=== PATIENT | male | born 1965 | race Caucasian/White ===

== ENCOUNTER 2017-04-22 13:40 | Emergency (ER) | payer OTHER ==
[2017-04-22 13:54] VITALS: BP 124/76; PULSE 61; TEMP 99.2; BMI 31.9
[2017-04-22] MEDS ORDERED: SODIUM CHLORIDE 1,000 ML IV STA (14:01)
[2017-04-22 14:10] LABS: RDW 12.4 % (11.9-15.9); WHITE BLOOD COUNT 16.5 K/mm3 (4.0-10.8)
--- NOTE | 2017-04-22 14:14 | PDOC ---
History of Present Illness - General Chief Complaint: Diarrhea Stated Complaint: LOOSE STOOLS HEADACHE AND WRETCHING Time Seen by Provider: 04/22/17 13:51 - History of Present Illness Initial Comments: 04/22/17 14:04 Mr. Coelho is a 51 yo male with a significant past medical history of borderline DMII who presents to the emergency department with a 4 day history of diarrhea with vomiting this AM as well. He says that the diarrhea began monday night 4 days after he returned from [place] and that he has eaten only toast and crackers since his diarrhea began. He reports the vomit this AM was scant and consisted mostly of the nexium and antacid he tried for relief one hour earlier. Finally, Mr. Coelho says that over the same time period he has experienced some burning from his stomach up towards his neck that he thinks may be heart burn. He is currently reporting a slight headache as well. The patient denies chest pain, shortness of breath, and dizziness. Denies fever , chills, and constipation. Denies dysuria, frequency, urgency and hematuria. Allergies:NKDA Past surgical history:Knee arthroscopy, cholecystectomy, chest muscle wall repair Social history: Social drinker, denies tobacco PMD - Dr. Hazel Past History - Past Medical History Allergies/Adverse Reactions: Allergies Allergy/AdvReac Type Severity Reaction Status Date / Time codeine Allergy Vomiting Verified 04/22/17 14:03 Home Medications: Ambulatory Orders Ciprofloxacin [Cipro -] 500 mg PO Q12H #10 tablet 04/22/17 Ondansetron HCl [Zofran] 4 mg PO ASDIR PRN #20 tablet 04/22/17 Other medical history: DENIES - Surgical History Cholecystectomy: Yes - Psycho/Social/Smoking Cessation Hx Anxiety: No Suicidal Ideation: No Smoking History: Never smoked Information on smoking cessation initiated: No Hx Alcohol Use: No Drug/Substance Use Hx: No Substance Use Type: None Review of Systems - Review of Systems Comments:: 04/22/17 14:04 GENERAL/CONSTITUTIONAL: No fever or chills. No weakness. HEAD, EYES, EARS, NOSE AND THROAT: No change in vision. No ear pain or discharge. No sore throat. CARDIOVASCULAR: No chest pain or shortness of breath RESPIRATORY: No cough, wheezing, or hemoptysis. GASTROINTESTINAL: +4 day history of Nausea, vomiting, diarrhea. No constipation. GENITOURINARY: No dysuria, frequency, or change in urination. MUSCULOSKELETAL: No joint or muscle swelling or pain. No neck or back pain. SKIN: No rash NEUROLOGIC: +Mild headache, no vertigo, loss of consciousness, or change in strength/sensation. ENDOCRINE: No increased thirst. No abnormal weight change HEMATOLOGIC/LYMPHATIC: No anemia, easy bleeding, or history of blood clots. ALLERGIC/IMMUNOLOGIC: No hives or skin allergy. 04/22/17 14:14 *Physical Exam - Vital Signs Last Vital Signs Temp Pulse Resp BP Pulse Ox 99.2 F 61 16 124/76 97 04/22/17 13:42 04/22/17 13:42 04/22/17 13:42 04/22/17 13:42 04/22/17 13:42 - Physical Exam Comments: 04/22/17 14:03 GENERAL: Awake, alert, and fully oriented, in no acute distress HEAD: No signs of trauma, normocephalic, atraumatic EYES: PERRLA, EOMI, sclera anicteric, conjunctiva clear ENT: Auricles normal inspection, hearing grossly normal, nares patent, oropharynx clear without exudates. Moist mucosa NECK: Normal ROM, supple, no lymphadenopathy, JVD, or masses LUNGS: No distress, speaks full sentences, clear to auscultation bilaterally HEART: Regular rate and rhythm, normal S1 and S2, no murmurs, rubs or gallops, peripheral pulses normal and equal bilaterally. ABDOMEN: +Some discomfort noted on palpation, but soft, nontender, normoactive bowel sounds. No guarding, no rebound. No masses EXTREMITIES: Normal inspection, Normal range of motion, no edema. No clubbing or cyanosis. NEUROLOGICAL: Cranial nerves II through XII grossly intact. Normal speech, normal gait, no focal sensorimotor deficits SKIN: Warm, Dry, normal turgor, no rashes or lesions noted. 04/22/17 14:15 Heart Score/ECG Review - ECG Impressions Comment:: 04/22/17 14:33 Sinus rhythm, rate 63, normal access, normal interval. Borderline for LVH. Possible inferior infarct noted in lead III and aVF Q waves, cannot compare with earlier EKG. Overall EKG not concerning for acute pathology. ED Treatment Course - LABORATORY CBC & Chemistry Diagram: 04/22/17 14:04 04/22/17 14:04 Medical Decision Making - Medical Decision Making 04/22/17 15:35 Mr. Coelho presents with symptoms/story consistent with traveler's diarrhea vs. viral illness. Due to elevated WBC's will send Rx for Cipro 500 BID for 5 days and Zofran as needed to pharmacy to shorten course / give relief. Will also instruct to follow-up with PCP regarding elevated AST lab levels. Laboratory Results - last 24 hr 04/22/17 04/22/17 14:04 14:04 WBC 16.5 H RBC 5.22 Hgb 16.8 Hct 49.3 H MCV 94.4 MCH 32.2 MCHC 34.0 RDW 12.4 Plt Count 218 MPV 8.5 Neutrophils % 81.9 Lymphocytes % 7.8 L Monocytes % 8.2 Eosinophils % 0.2 Basophils % 1.9 Sodium 138 Potassium 4.3 Chloride 106 Carbon Dioxide 27 Anion Gap 5 L BUN 12 Creatinine 1.0 Creat Clearance w eGFR > 60 Random Glucose 102 Calcium 9.0 Total Bilirubin 0.9 AST 74 H ALT 35 Alkaline Phosphatase 54 Total Protein 7.1 Albumin 3.7 *DC/Admit/Observation/Transfer Diagnosis at time of Disposition: Diarrhea Qualifiers: Diarrhea type: unspecified type Qualified Code(s): R19.7 - Diarrhea, unspecified - Discharge Dispostion Disposition: HOME Condition at time of disposition: Stable - Referrals Referrals: Flo Hazel MD [Staff Physician] - - Patient Instructions Printed Discharge Instructions: DI for Diarrhea and Traveler's Diarrhea -- Adult - Attestations Physician Attestion: 04/22/17 14:18 I, Dr. Vasquez Sorenson, attest that this document has been prepared under my direction and personally reviewed by me in its entirety. I further attest, that it accurately reflects all work, treatment, procedures and medical decision -making performed by me.
[2017-04-22 14:15] LABS: BASOPHIL 1.9 % (0-2.0); EOSINOPHIL 0.2 % (0-4.5); MCH 32.2 pg (25.7-33.7); MEAN CELL VOLUME 94.4 fl (80-96); MEAN PLT VOLUME 8.5 fl (7.5-11.1); NEUTROPHILS 81.9 % (42.8-82.8); PLATELET COUNT 218 K/MM3 (134-434)
[2017-04-22] MEDS ORDERED: ONDANSETRON 4 MG/2 ML VIAL IVPB ONE (14:20)
[2017-04-22] MEDS ORDERED: ONDANSETRON 4 MG/2 ML VIAL ONE (14:21)
[2017-04-22 14:23] LABS: ALBUMIN 3.7 g/dl (3.5-5.0); ALK PHOS 54 U/L (32-92); ANION GAP 5 (8-16); BILIRUBIN,TOTAL 0.9 mg/dl (0.2-1.0); CO2 27 mmol/L (22-28); GLUCOSE,RANDOM 102 mg/dl (74-106); SGOT/AST 74 U/L (10-42); SGPT/ALT 35 U/L (10-40); TOT PROT 7.1 g/dl (6.4-8.3)
--- NOTE | 2017-04-22 15:32 | PDOC ---
Attending Attestation - Resident Resident Name: Vasquez Sorenson - ED Attending Attestation I have performed the following: I have examined & evaluated the patient, The case was reviewed & discussed with the resident, I agree w/resident's findings & plan - HPI HPI: 04/22/17 15:30 back from [place] on Monday, started diarrhea and upset stomach since Monday. No fever. Frequent watery diarrhea without blood. Today with dry heaves. Comes in because symptoms are not getting better. Examination with normal bowel sounds, soft abdomen without tenderness or guarding. Laboratory workup noted. White blood cell count is elevated to 16.5. Differential diagnosis is viral gastroenteritis versus traveler's diarrhea. Given the persistence of symptoms and the high white blood cell count, patient will be treated with Cipro 500 mg twice a day which has been demonstrated to reduce the severity of symptoms in patients with traveler's diarrhea or bacterial enteritis. Laboratory Results - last 24 hr 04/22/17 04/22/17 14:04 14:04 WBC 16.5 H RBC 5.22 Hgb 16.8 Hct 49.3 H MCV 94.4 MCH 32.2 MCHC 34.0 RDW 12.4 Plt Count 218 MPV 8.5 Neutrophils % 81.9 Lymphocytes % 7.8 L Monocytes % 8.2 Eosinophils % 0.2 Basophils % 1.9 Sodium 138 Potassium 4.3 Chloride 106 Carbon Dioxide 27 Anion Gap 5 L BUN 12 Creatinine 1.0 Creat Clearance w eGFR > 60 Random Glucose 102 Calcium 9.0 Total Bilirubin 0.9 AST 74 H ALT 35 Alkaline Phosphatase 54 Total Protein 7.1 Albumin 3.7 04/22/17 15:31 - Physicial Exam PE: 04/22/17 15:32 benign abd as noted - Medical Decision Making 04/22/17 15:32 see assessment above
--- NOTE | 2017-04-23 19:05 | EKG ---
Test Reason : Blood Pressure : / mmHG Vent. Rate : 063 BPM Atrial Rate : 063 BPM P-R Int : 142 ms QRS Dur : 094 ms QT Int : 362 ms P-R-T Axes : 049 050 017 degrees QTc Int : 370 ms SINUS RHYTHM MINIMAL VOLTAGE CRITERIA FOR LVH, MAY BE NORMAL VARIANT ABNORMAL ECG NO PREVIOUS ECGS AVAILABLE Confirmed by WOOD FONSECA MD ([id number]) on 04/23/2017 7:05:24 PM Referred By: ALICE PADILLA Confirmed By:WOOD FONSECA MD
== END 2017-04-22 15:48 | disposition home or self-care (01) ==
LOC: FER 13:40
PROC: 3E033GC Introduction of Other Therapeutic Substance into Peripheral Vein, Percutaneous Approach (ICD-10-PCS; principal; 2017-04-22)
PROC: 3E0337Z Introduction of Electrolytic and Water Balance Substance into Peripheral Vein, Percutaneous Approach (ICD-10-PCS; 2017-04-22)
DX: R19.7 Diarrhea, unspecified (principal); R73.03 Prediabetes; Z88.5 Allergy status to narcotic agent
CPT/HCPCS: 36415; 80053; 85025; 93005; 99283-25

== ENCOUNTER 2017-05-04 17:20 | Observation (INO) | payer OTHER ==
[2017-05-04 17:24] VITALS: BMI 32.2
[2017-05-04] MEDS ORDERED: ASPIRIN 81 MG CHEWABLE TABLETS PO ONE ×2 (17:35→17:52)
--- NOTE | 2017-05-04 17:40 | PDOC ---
History of Present Illness - General Chief Complaint: Palpitations Stated Complaint: PALPITATIONS Time Seen by Provider: 05/04/17 17:21 History Source: Patient Exam Limitations: No Limitations - History of Present Illness Initial Comments: This is a 51 yo male with h/o recent diarrheal illness who presents with palpitations. He explains that since yesterday afternoon, he has been having left chest discomfort which is not like pain, but which feels like "something is just not right." He notes that his heart beat feels irregular. He also has had sweats this afternoon, but he denies any nausea, vomiting, continued diarrhea, chest pain, shoulder pain, arm pain, jaw pain, neck pain, dizziness, headache, vision changes, numbness, tingling, weakness, cough, sore throat, or runny nose. Three months ago he had an echocardiogram as part of a workup for burning mid-sternal chest pain, and this study was normal. He was supposed to have a follow-up cardiac stress test, but this has not yet been done. He continues to have occasional episodes of burning midsternal chest pain, the last of which was a few days ago. He takes a baby ASA a day, and his last dose was yesterday. He has no history of high blood pressure, high cholesterol, diabetes, known heart disease, or family history of heart disease or sudden . He used to smoke cigars but has not for decades. Past History - Past Medical History Allergies/Adverse Reactions: Allergies Allergy/AdvReac Type Severity Reaction Status Date / Time codeine Allergy Vomiting Verified 05/04/17 17:21 Home Medications: Ambulatory Orders NK [No Known Home Medication] 05/04/17 - Surgical History Cholecystectomy: Yes - Psycho/Social/Smoking Cessation Hx Anxiety: No Suicidal Ideation: No Smoking History: Never smoked Hx Alcohol Use: No Drug/Substance Use Hx: No Substance Use Type: None Cardiac Specific PMH - Complaint Specific PMHX Cardiac Arrhythmia: No *Physical Exam - Vital Signs Last Vital Signs Temp Pulse Resp BP Pulse Ox 98.7 F 74 16 139/91 100 05/04/17 17:20 05/04/17 17:20 05/04/17 17:20 05/04/17 17:20 05/04/17 17:20 Heart Score/ECG Review - History History: Moderately suspicious - Electrocardiogram EKG: Significant ST-depression - Age Age: 45-65 - Risk Factors Risk Factors Heart Score: Yes Smoking History, Yes Hx Obesity Based on the list above the patient has:: 1-2 risk factors #1 Sinus rhythm, rate of 72, with normal axis and intervals, with flipped t-waves in II, III, and aVF and 3-box q-wave in III, also with 2 PVCs. Flipped t-waves are NEW compared with EKG performed on 04/22/17 which showed upright t-waves in II and aVF and only a slightly inverted t-wave in III. ED Treatment Course - LABORATORY CBC & Chemistry Diagram: 05/04/17 17:42 05/04/17 17:42 - ADDITIONAL ORDERS Additional order review: Laboratory Results 05/04/17 05/04/17 05/04/17 17:42 17:42 17:41 INR 1.18 PTT (Actin FS) 29.6 Sodium 137 Potassium 4.1 Chloride 103 Carbon Dioxide 26 Anion Gap 8 BUN 18 D Creatinine 1.2 Creat Clearance w eGFR > 60 Random Glucose 85 Calcium 9.5 Magnesium 1.8 Total Bilirubin 0.6 D AST 25 D ALT 34 Alkaline Phosphatase 58 Creatine Kinase Cancelled 141 Troponin I Cancelled 0.06 Total Protein 7.5 Albumin 3.8 05/04/17 17:42 RBC 5.33 MCV 91.1 MCHC 35.4 RDW 11.9 MPV 7.9 Neutrophils % 60.0 D Lymphocytes % 27.0 D Monocytes % 10.1 Eosinophils % 1.7 D Basophils % 1.2 05/04/17 19:05 - RADIOLOGY Radiology Studies Ordered: Category Date Time Status CHEST X-RAY PORTABLE* [RAD] Stat Radiology 05/04/17 17:35 Taken Chest X-Ray Result: Other (no acute cardiopulmonary processes) - Medications Given in the ED: ED Medications Discontinued Medications Generic Name Dose Route Start Last Admin Trade Name Freq PRN Reason Stop Dose Admin Aspirin 162 mg 05/04/17 17:35 05/04/17 17:52 Asa - PO 05/04/17 17:36 Not Given ONCE ONE Aspirin 324 mg 05/04/17 17:52 05/04/17 17:53 Asa - PO 05/04/17 17:53 324 mg ONCE ONE Administration Medical Decision Making - Medical Decision Making This is a 51 yo male with h/o cholecystectomy who presents c/o palpitations and chest discomfort. Recent trip to [place] and subsequent diarrheal illness and ciprofloxacin use. His exam is notable for mild diaphoresis and irregular heart rhythm (probable dropped beats). DDX includes ACS, electrolyte disturbance, PNA, bronchitis, aortic dissection, pericarditis, myocarditis. Ordered is chest pain panel including CBCD, CMP, troponin, coags, pCXR, 324 mg ASA, EKG. 05/04/17 17:38 EKG shows new flipped t-waves in II, III, and aVF as well as one q-wave in III and [address] Linares is vacuum evaporation operator for Pt's PCP's office and the case is discussed with him while workup is in progress. Recommends considering admission at least to obs pending the results of his ED workup. 05/04/17 18:28 CBCD and CMP unremarkable. Troponin is 0.06 and coags are unremarkable. CXR without e/o acute cardiopulmonary processes. 05/04/17 18:44 Patient is admitted to tele obs with metal turner Dr. Ramirez consulting per Pt PCP' s request. PCP does recommend cardiac stress test Laboratory Tests 05/04/17 05/04/17 05/04/17 17:41 17:42 17:42 WBC 9.5 D RBC 5.33 Hgb 17.2 H Hct 48.5 MCV 91.1 MCH 32.2 MCHC 35.4 RDW 11.9 Plt Count 320 D MPV 7.9 Neutrophils % 60.0 D Lymphocytes % 27.0 D Monocytes % 10.1 Eosinophils % 1.7 D Basophils % 1.2 INR 1.18 PTT (Actin FS) 29.6 Sodium Potassium Chloride Carbon Dioxide Anion Gap BUN Creatinine Creat Clearance w eGFR Random Glucose Calcium Magnesium Total Bilirubin AST ALT Alkaline Phosphatase Creatine Kinase 141 Troponin I 0.06 Total Protein Albumin 05/04/17 17:42 WBC RBC Hgb Hct MCV MCH MCHC RDW Plt Count MPV Neutrophils % Lymphocytes % Monocytes % Eosinophils % Basophils % INR PTT (Actin FS) Sodium 137 Potassium 4.1 Chloride 103 Carbon Dioxide 26 Anion Gap 8 BUN 18 D Creatinine 1.2 Creat Clearance w eGFR > 60 Random Glucose 85 Calcium 9.5 Magnesium 1.8 Total Bilirubin 0.6 D AST 25 D ALT 34 Alkaline Phosphatase 58 Creatine Kinase Cancelled Troponin I Cancelled Total Protein 7.5 Albumin 3.8 *DC/Admit/Observation/Transfer Diagnosis at time of Disposition: Acute electrocardiogram changes, Palpitations, Atypical angina - Discharge Dispostion Condition at time of disposition: Guarded Admit: Yes Decision to Admit order Date/Time: Decision to Admit Order Category Date Time Status Decision to Admit to Hospital Routine Admission 05/04/17 18:47 Active - Referrals Referrals: Flo Hazel MD [Primary Care Provider] - - Attestations Physician Attestion: 05/04/17 18:47 I, Dr. Marely Deshpande, attest that this document has been prepared under my direction and personally reviewed by me in its entirety. I further attest, that it accurately reflects all work, treatment, procedures and medical decision -making performed by me.
[2017-05-04] MEDS ORDERED: ASPIRIN 81 MG CHEWABLE TABLETS ONE ×2 (17:45→17:46)
[2017-05-04] MEDS ORDERED: ASPIRIN 325 MG TABLET PO ONE (17:51)
--- NOTE | 2017-05-04 17:53 | PDOC ---
Attending Attestation - Resident Resident Name: Marely Deshpande - ED Attending Attestation I have performed the following: I have examined & evaluated the patient, The case was reviewed & discussed with the resident, I agree w/resident's findings & plan - HPI HPI: 05/04/17 17:49 51 y/o male with palpitations and hear not feeling right since yesterday. Denies chest pain or SOB. Seen last week, for viral infection in ER. Patient states was having GI complaints with burning into the chest. Was told by his PMD as well that he had a viral infection from traveling to [place]. Pt states diarrhea resolved. No fever or chills. No back pain, jaw pain or arm pain. No N/ V/D/C. Scheduled for a stress test that was cancelled twice but had a normal echocardiogram. - Physicial Exam PE: 05/04/17 17:51 VS stable Heent : unremarkable, neg bruits b/l carotid Heart RRR with no murmur Lungs CTA b/l no wheezes rhonchi or rales Abdomen: soft non tender +BS EXT: neg C/C/E Neuro: no focal deficits, CN 2- 12 grossly intact EKG: rate 72, PVC, T wave inversion lead II, III and AVF, changes from 2016 CXR NAD, no widened mediastinum 05/04/17 18:[address] Deshpande spoke to Hospitalist, will admit for palpitations, EKG changes Will have Dr. Elizondo Surgery Consultant to see pt Further orders as per hospitalist, observation Labs normal 05/04/17 18:46 - Medical Decision Making 05/04/17 18:46 A: palpitations chest pain EKG changes P: admit, observation stress in am, further orders as per Surgery Consultant
[2017-05-04 18:08] LABS: ACTIVATED PTT 29.6 SECONDS (24.0-38.9)
[2017-05-04 18:11] LABS: ALBUMIN 3.8 g/dl (3.5-5.0); ALK PHOS 58 U/L (32-92); ANION GAP 8 (8-16); BILIRUBIN,TOTAL 0.6 mg/dl (0.2-1.0); CALCIUM 9.5 mg/dl (8.4-10.2); CO2 26 mmol/L (22-28); CREATININE 1.2 mg/dl (0.6-1.3); GLUCOSE,RANDOM 85 mg/dl (74-106); MAGNESIUM 1.8 mg/dL (1.8-2.4); SGOT/AST 25 U/L (10-42); SGPT/ALT 34 U/L (10-40); TOT PROT 7.5 g/dl (6.4-8.3)
[2017-05-04 18:13] LABS: INR 1.18 (0.82-1.09); PROTHROMBIN TIME (PATIENT) 13.2 SEC (10.2-13.0)
[2017-05-04 18:23] LABS: BASOPHIL 1.2 % (0-2.0); EOSINOPHIL 1.7 % (0-4.5); MCH 32.2 pg (25.7-33.7); MCHC 35.4 g/dl (32.0-35.9); MEAN CELL VOLUME 91.1 fl (80-96); MEAN PLT VOLUME 7.9 fl (7.5-11.1); PLATELET COUNT 320 K/MM3 (134-434); RDW 11.9 % (11.9-15.9); WHITE BLOOD COUNT 9.5 K/mm3 (4.0-10.8)
[2017-05-04 18:23] LABS: TROPONIN I (DFP) 0.06 ng/ml (0.03-0.50)
--- NOTE | 2017-05-04 20:23 | CON.CARD ---
Consult Consult Specialty:: Cardiology Referred by:: Marely Deshpande Reason for Consultation:: Abnormal ECG - History of Present Illness Chief Complaint: Palpitations History of Present Illness: 51 yo male who presents to [facility] ED with vague chest discomfort which he describes as "palpitations" which occurred this afternoon and prompted him to go to [facility] ED for further evaluation. Of note, patient was initially seen in our office in 09/[address] Miller for evaluation of dyspnea for which he was initially scheduled for echo and stress echo for further evaluation. He had an echo on 10/04/16 which demonstrated normal LV size and LVEF 60% and no significant valvular disease. He was also scheduled for a stress echo but it had to be rescheduled but patient never followed through with rescheduling the test. ECG in ED demonstrated sinus rhythm with new T wave abnormalities in inferior leads. Trop 0.06. Patient is currently asymptomatic but hypertensive. Patient is currently scheduled for a treadmill stress echo in our office on 05/09, which the patient confirmed today. - History Source History Provided By: Patient Limitations to Obtaining History: No Limitations - Past Surgical History Past Surgical History: Yes: Arthrosocopy (Right knee), Cholecystectomy Additional Surgical History: Muscle repair for tear from weight lifting, tonsillectomy - Alcohol/Substance Use Hx Alcohol Use: No History of Substance Use: reports: None - Smoking History Smoking history: Former smoker (Quit 1994) Home Medications - Allergies Allergies/Adverse Reactions: Allergies Allergy/AdvReac Type Severity Reaction Status Date / Time codeine Allergy Vomiting Verified 05/04/17 17:21 - Home Medications Home Medications: Ambulatory Orders NK [No Known Home Medication] 05/04/17 Family Disease History - Family Disease History Family Disease History: Diabetes: Father, CA: Mother Review of Systems - Review of Systems Constitutional: reports: No Symptoms Eyes: reports: No Symptoms HENT: reports: No Symptoms Neck: reports: No Symptoms Cardiovascular: reports: Palpitations. denies: Edema, Shortness of Breath Respiratory: reports: No Symptoms Gastrointestinal: reports: No Symptoms Genitourinary: reports: No Symptoms Musculoskeletal: reports: No Symptoms Neurological: reports: No Symptoms Endocrine: reports: No Symptoms Hematology/Lymphatic: reports: No Symptoms Psychiatric: reports: No Symptoms Vital Signs: Vital Signs Temperature 98.7 F 05/04/17 17:20 Pulse Rate 73 05/04/17 18:53 Respiratory Rate 16 05/04/17 18:53 Blood Pressure 135/87 05/04/17 18:53 O2 Sat by Pulse Oximetry (%) 97 05/04/17 18:53 Constitutional: Yes: Well Nourished, No Distress Eyes: Yes: Conjunctiva Clear, EOM Intact HENT: Yes: Atraumatic, Normocephalic Respiratory: Yes: CTA Bilaterally Gastrointestinal: Yes: Normal Bowel Sounds, Soft. No: Tenderness Cardiovascular: Yes: Regular Rate and Rhythm JVD: No Carotid Bruit: No Heart Sounds: Yes: S1, S2 Murmur: No: Systolic Murmur Extremities: Yes: WNL Edema: No Peripheral Pulses WNL: Yes Neurological: Yes: Alert, Oriented, Cran Nerves II-XII Intact Psychiatric: Yes: WNL - Other Data Labs, Other Data: INR, PTT INR 1.18 (0.82-1.09) 05/04/17 17:42 05/04/17 ECG: Sinus rhythm, PVCs, possible LAE, non-specific T wave abnormalities in III & aVF, more prominent T wave inversion in II only. Echo: Report Reviewed (10/04/16 Echo: TDS. Normal LV size with normal systolic/ diastolic function, LVEF 60%. Mild LVH. Mildly increased LA volume index. Minimal MR/TR/MS.) Imaging - Results Chest X-ray: Report Reviewed (05/04/17: No cardiomegaly, effusions, or infiltrates.), Image Reviewed Assessment/Plan 51 yo male with vague chest discomfort which he describes as "palpitations" which occurred this afternoon. Echo on 10/04/16 demonstrated normal LV size and LVEF 60% and no significant valvular disease. ECG in ED demonstrated sinus rhythm with new non-specific T wave abnormalities in III and aVF, and more prominent T wave inversion in II only. 1st trop (-) at 0.06 CXR unremarkable. Currently hypertensive with SBP 160s, but asymptomatic. RECS: Admit to telemetry. Cycle troponins. Start amlodipine 5 mg po daily for BP control. If patient remains clinically stable and serial trops are negative, patient may be discharged tomorrow morning with outpatient stress test in our office. Patient was already scheduled for a treadmill stress echo in our office on (). Please call with questions.
[2017-05-04] MEDS ORDERED: amLODIPine BESYLATE 5 MG TABLET (FP) PO ONE (20:26)
[2017-05-04] MEDS ORDERED: amLODIPine BESYLATE 5 MG TABLET (FP) ONE (20:34)
--- NOTE | 2017-05-04 21:03 | HP ---
CHIEF COMPLAINT: Palpitations PCP: Dr. Hazel HISTORY OF PRESENT ILLNESS: This is a 51 y/o male with a no significant medical history. Who reports to the ED with palpitations x today. Patient had a recent diarrheal illness- resolved. Patient endorsed to the ED attending having CP burning in sensation 1 month ago. He reports taking a baby Asa today. Patient denies chest pain, SOB or dizziness. Patient denies fever, chills, cough, abdominal pain, N/V/D, constipation, dysuria. ER course was notable for: (1) EKG- SR 72, TWI Leads II, III, AVF, Q wave III with PVCs (2) Trop I 0.06 (3) Chest Xray- no acute pathology Recent Travel: None PAST MEDICAL HISTORY: Denies PAST SURGICAL HISTORY: Arthroscopy R- knee Cholecystectomy Social History: Smoking: Former Cigar, 1994 Alcohol: Denies Drugs: Denies Lives alone, employed [employer] Family History: Allergies codeine Allergy (Verified 05/04/17 17:21) Vomiting HOME MEDICATIONS: Home Medications Medication Instructions Recorded NK [No Known Home Medication] 05/04/17 REVIEW OF SYSTEMS CONSTITUTIONAL: Absent: fever, chills, diaphoresis, generalized weakness, malaise, loss of appetite, weight change HEENT: Absent: rhinorrhea, nasal congestion, throat pain, throat swelling, difficulty swallowing, mouth swelling, ear pain, eye pain, visual changes CARDIOVASCULAR: palpitations, irregular heart rate Absent: chest pain, syncope, lightheadedness, peripheral edema RESPIRATORY: Absent: cough, shortness of breath, dyspnea with exertion, orthopnea, wheezing, stridor, hemoptysis GASTROINTESTINAL: Absent: abdominal pain, abdominal distension, nausea, vomiting, diarrhea, constipation, melena, hematochezia GENITOURINARY: Absent: dysuria, frequency, urgency, hesitancy, hematuria, flank pain, genital pain MUSCULOSKELETAL: Absent: myalgia, arthralgia, joint swelling, back pain, neck pain SKIN: Absent: rash, itching, pallor HEMATOLOGIC/IMMUNOLOGIC: Absent: easy bleeding, easy bruising, lymphadenopathy, frequent infections ENDOCRINE: Absent: unexplained weight gain, unexplained weight loss, heat intolerance, cold intolerance NEUROLOGIC: Absent: headache, focal weakness or paresthesias, dizziness, unsteady gait, seizure, mental status changes, bladder or bowel incontinence PSYCHIATRIC: Absent: anxiety, depression, suicidal or homicidal ideation, hallucinations. PHYSICAL EXAMINATION Vital Signs - 24 hr 05/04/17 20:33 Pulse Rate [ 81 Apical] Blood Pressure 163/93 [Right Arm] GENERAL: Awake, alert, and fully oriented, in no acute distress. HEAD: Normal with no signs of trauma. EYES: Pupils equal, round and reactive to light, extraocular movements intact, sclera anicteric, conjunctiva clear. No lid lag. EARS, NOSE, THROAT: Ears normal, nares patent, oropharynx clear without exudates. Moist mucous membranes. NECK: Normal range of motion, supple without lymphadenopathy, JVD, or masses. LUNGS: Breath sounds equal, clear to auscultation bilaterally. No wheezes, and no crackles. No accessory muscle use. HEART: Regular rate and rhythm, normal S1 and S2 without murmur, rub or gallop. ABDOMEN: Soft, nontender, not distended, normoactive bowel sounds, no guarding, no rebound, no masses. No hepatomegaly or splenomegaly. MUSCULOSKELETAL: Normal range of motion at all joints. No bony deformities or tenderness. No CVA tenderness. UPPER EXTREMITIES: 2+ pulses, warm, well-perfused. No cyanosis. No clubbing. No peripheral edema. LOWER EXTREMITIES: 2+ pulses, warm, well-perfused. No calf tenderness. No peripheral edema. NEUROLOGICAL: Cranial nerves II-XII intact. Normal speech. Gait not observed. PSYCHIATRIC: Cooperative. Good eye contact. Appropriate mood and affect. SKIN: Warm, dry, normal turgor, no rashes or lesions noted, normal capillary refill. ASSESSMENT/PLAN: This is a 51 y/o male with no PMHx. Placed on Tele Observation for Palpitations , Abnormal EKG, Atypical Angina for further evaluation of their emergent condition. Impression: 1. Palpitations 2. Atypical Angina 3. Abnormal EKG 4. Elevated BP Problem List - Problem (1) Palpitations Assessment/Plan: - r/o ACS - HEART Score 3 - Cardiac Monitoring - Chest Xray- no acute pathology - EKG showed SR 72 bpm, TWI lead II, III, AVF, with multifocal PVCs x2 - Patient given ASA in ED - Concern with elevated BP, Amlodipine Besylate 5mg given now - Will trend Serial Enzymes Code(s): R00.2 - PALPITATIONS (2) Atypical angina Assessment/Plan: - Patient reports palpitations, on cardiac cath tech 60's, he denies chest pain or SOB at present - Continue cardiac monitoring - Serial Enzymes - EKG reviewed, TWI new compared to prior study 04/22 - Cardiology following - Stress test scheduled for next Monday in the office - Echo done 09/2015 Code(s): I20.8 - OTHER FORMS OF ANGINA PECTORIS (3) Acute electrocardiogram changes Assessment/Plan: - EKG showed TWI in Code(s): R94.31 - ABNORMAL ELECTROCARDIOGRAM [ECG] [EKG] (4) Elevated blood pressure reading Assessment/Plan: - Patient has no history of hypertension, reports BP at office usually 120's/70s -80s - Patient is asymptomatic - Will start Amlodipine Besylate 5mg now, discussed with Cardiology - Monitor BP - Monitor renal function Code(s): R03.0 - ELEVATED BLOOD-PRESSURE READING, W/O DIAGNOSIS OF HTN (5) DVT prophylaxis Assessment/Plan: - OOB - SCDs Code(s): VLF0748 - Visit type - Emergency Visit Emergency Visit: Yes ED Registration Date: 05/04/17 Care time: The patient presented to the Emergency Department on the above date and was hospitalized for further evaluation of their emergent condition. - New Patient This patient is new to me today: Yes Date on this admission: 05/04/17 - Critical Care Critical Care patient: No
[2017-05-04 23:53] LABS: TROPONIN I (DFP) 0.05 ng/ml (0.03-0.50)
[2017-05-05 07:49] LABS: BASOPHIL 1.9 % (0-2.0); EOSINOPHIL 1.8 % (0-4.5); MCH 31.9 pg (25.7-33.7); MCHC 34.8 g/dl (32.0-35.9); MEAN CELL VOLUME 91.6 fl (80-96); MEAN PLT VOLUME 7.9 fl (7.5-11.1); NEUTROPHILS 57.9 % (42.8-82.8); PLATELET COUNT 294 K/MM3 (134-434); RDW 11.9 % (11.9-15.9); WHITE BLOOD COUNT 8.7 K/mm3 (4.0-10.8)
[2017-05-05 08:02] LABS: ANION GAP 3 (8-16); CALCIUM 9.5 mg/dl (8.4-10.2); CO2 29 mmol/L (22-28); CREATININE 1.1 mg/dl (0.6-1.3); GLUCOSE,RANDOM 104 mg/dl (74-106); MAGNESIUM 1.7 mg/dL (1.8-2.4); PHOSPHOROUS 3.1 mg/dl (2.5-4.6)
--- NOTE | 2017-05-05 08:22 | DS ---
Physical Exam: SUBJECTIVE: Patient seen and examined OBJECTIVE: Vital Signs Period Temp Pulse Resp BP Sys/Ayala Pulse Ox Last 24 Hr 97.7 F-98.7 F 66-81 18-20 117-163/71-93 96-98 PHYSICAL EXAM GENERAL: The patient is awake, alert, and fully oriented, in no acute distress. HEAD: Normal with no signs of trauma. EYES: PERRL, extraocular movements intact, sclera anicteric, conjunctiva clear. ENT: Ears normal, nares patent, oropharynx clear without exudates, moist mucous membranes. NECK: Trachea midline, full range of motion, supple. LUNGS: Breath sounds equal, clear to auscultation bilaterally, no wheezes, no crackles, no accessory muscle use. HEART: Regular rate and rhythm, S1, S2 without murmur, rub or gallop. ABDOMEN: Soft, nontender, nondistended, normoactive bowel sounds, no guarding, no rebound, no hepatosplenomegaly, no masses. EXTREMITIES: 2+ pulses, warm, well-perfused, no edema. NEUROLOGICAL: Cranial nerves II through XII grossly intact. Normal speech, gait not observed. PSYCH: Normal mood, normal affect. SKIN: Warm, dry, normal turgor, no rashes or lesions noted. LABS Laboratory Results - last 24 hr 05/04/17 05/05/17 05/05/17 23:25 07:00 07:00 WBC 8.7 RBC 5.23 Hgb 16.7 Hct 47.9 MCV 91.6 MCH 31.9 MCHC 34.8 RDW 11.9 Plt Count 294 MPV 7.9 Neutrophils % 57.9 Lymphocytes % 29.2 Monocytes % 9.2 Eosinophils % 1.8 Basophils % 1.9 Sodium 137 Potassium 4.6 Chloride 105 Carbon Dioxide 29 H Anion Gap 3 L BUN 20 H Creatinine 1.1 Random Glucose 104 D Calcium 9.5 Phosphorus 3.1 Magnesium 1.7 L Creatine Kinase 114 Troponin I 0.05 Triglycerides Cholesterol Total LDL Cholesterol HDL Cholesterol 05/05/17 07:00 WBC RBC Hgb Hct MCV MCH MCHC RDW Plt Count MPV Neutrophils % Lymphocytes % Monocytes % Eosinophils % Basophils % Sodium Potassium Chloride Carbon Dioxide Anion Gap BUN Creatinine Random Glucose Calcium Phosphorus Magnesium Creatine Kinase 87 Troponin I Triglycerides 84 Cholesterol 136 Total LDL Cholesterol 95 HDL Cholesterol 24 L HOSPITAL COURSE: Date of Admission:05/04/17 Date of Discharge: 05/05/17 Minutes to complete discharge: 45 Discharge Summary Reason For Visit: ACUTE EKG CHANGES/PALPTIATIONS Current Active Problems Acute electrocardiogram changes (Acute) Atypical angina (Acute) DVT prophylaxis (Acute) Elevated blood pressure reading (Acute) Palpitations (Acute) Condition: Guarded - Instructions Referrals: Flo Hazel MD [Primary Care Provider] - - Home Medications Comprehensive Discharge Medication List: Ambulatory Orders NK [No Known Home Medication] 05/04/17
[2017-05-05 09:21] VITALS: BP 128/79; PULSE 68; TEMP 97.8
[2017-05-05] MEDS ORDERED: MAGNESIUM SULFATE 2 GM in SODIUM CHLORIDE 100 ML IVPB ONE (09:58)
[2017-05-05] MEDS ORDERED: amLODIPine BESYLATE 5 MG TABLET (FP) PO SCH (10:00)
[2017-05-05] MEDS ORDERED: MAGNESIUM SULF 50% (8.12 MEQ/2 ML-1 GM VIAL) IVPB SCH (10:00)
[2017-05-05] MEDS ORDERED: ASPIRIN 81 MG CHEWABLE TABLETS PO SCH (10:00)
[2017-05-05 10:02] LABS: TROPONIN I (DFP) 0.05 ng/ml (0.03-0.50)
--- NOTE | 2017-05-05 13:23 | EKG ---
Test Reason : Blood Pressure : / mmHG Vent. Rate : 072 BPM Atrial Rate : 072 BPM P-R Int : 144 ms QRS Dur : 096 ms QT Int : 374 ms P-R-T Axes : 057 040 -23 degrees QTc Int : 409 ms SINUS RHYTHM WITH OCCASIONAL PREMATURE VENTRICULAR COMPLEXES POSSIBLE LEFT ATRIAL ENLARGEMENT NONSPECIFIC T WAVE ABNORMALITY in lead II T wave inverions in III and aVF ABNORMAL ECG WHEN COMPARED WITH ECG OF 22-APR-2017 14:07, PREMATURE VENTRICULAR COMPLEXES ARE NOW PRESENT INVERTED T WAVES HAVE REPLACED NONSPECIFIC T WAVE ABNORMALITY IN III and aVF Confirmed by WOOD FONSECA MD ([id number]) on 05/05/2017 1:22:56 PM Referred By: DR GALLEGO Confirmed By:WOOD FONSECA MD
== END 2017-05-05 11:41 | disposition home or self-care (01) ==
LOC: FER 17:20 → FM/S 19:11
PROVIDERS: ADMIT Internal Medicine; ATTEND Nurse Practitioner Family
PROC: 3E033GC Introduction of Other Therapeutic Substance into Peripheral Vein, Percutaneous Approach (ICD-10-PCS; principal; 2017-05-04)
DX: R94.31 Abnormal electrocardiogram [ECG] [EKG] (principal); R00.2 Palpitations; I20.8 Other forms of angina pectoris; R03.0 Elevated blood-pressure reading, without diagnosis of hypertension
CPT/HCPCS: 36415; 71010-TC; 80048; 80053; 80061; 83036; 83735; 84100; 84484; 85025; 85610; 85730; 93005; 99285-25; G0378